=== PATIENT | male | born 1980 | race Caucasian/White ===

== ENCOUNTER 2022-09-10 01:47 | Outpatient (CLI) | payer OTHER, SELFPAY | END 2022-09-10 01:48 | disposition home or self-care (01) | LOC: AMB 09-11 15:40 | PROVIDERS: PCP Family Medicine; Visit Provider Family Medicine | DX: R41.82 Altered mental status, unspecified (principal) | CPT/HCPCS: A0425; A0429 ==

== ENCOUNTER 2022-09-10 02:40 | Emergency (ER) | payer OTHER, SELFPAY ==
[2022-09-10] VITALS (24 sets, daily range): BP systolic 118–138; BP diastolic 69–90; PULSE 71–109; RESP 14–16; TEMP 36.9; O2SAT 95–98
--- NOTE | 2022-09-10 02:57 | CRLHL7_ITS ---
For Patients: As a result of the Century Cures Act, medical imaging exams and procedure reports are released immediately into your electronic medical record. You may view this report before your referring provider. If you have questions, please contact your health care provider. INDICATION: Transient alteration of awareness TECHNIQUE: CT Head without i.v. contrast. Coronal and sagittal reformats were obtained. COMPARISON: None FINDINGS: CSF space: The ventricles are normal for age. Brain: No evidence of mass, acute infarction or hemorrhage is seen. No mass-effect or midline shift is seen. The brain parenchyma is otherwise normal in appearance with preservation of the nguyen-white matter junction. Calvarium: The visualized paranasal sinuses are well aerated. The mastoid air cells are clear. The visualized orbits are grossly unremarkable. The calvarium is unremarkable in appearance with no fractures identified. IMPRESSION: 1. No evidence of acute infarction, intracranial hemorrhage, or mass-effect seen. Please note that all CT scans at this facility use dose modulation, iterative reconstruction, and/or weight-based dosing when appropriate to reduce radiation dose to as low as reasonably achievable. Dictated by: Cassius Guevara MD @ 09/10/2022 03:37:20 (Electronically Signed)
--- NOTE | 2022-09-10 02:59 | ED_ITS ---
HPI - General Adult General Chief complaint: Altered Mental Status Stated complaint: altered mental status Time Seen by Provider: 09/10/22 02:57 Source: family and EMS Mode of arrival: EMS History of Present Illness HPI narrative: Patient presents by EMS with altered mental status. called EMS because he was acting strangely when she awoke in the middle of the night. His moving all extremities but seemed ?off?. He took a gas station gummy of unknown contents this evening. No one can tell me if he does this regularly or if there were any other impairing substances. He is awake, arousable, but cannot answer appropriate questions at the time my investigation. Information is obtained from EMS, will update with call to . He claims he has no long-term medications or allergies. He denies any other intoxication but does admit to taking the gummy. ROS notable for the altered mental status but was apparently behaving normally with no other medical complaint times 12 systems prior to taking the gummy and going to bed. Last known well was apparently around 8 p.m. Update: Our nursing team was able to speak with his in reported that he was behaving normally when he went to bed at 7:45 p.m.. He probably took the gummy after supper at around 7:30 p.m.. He woke up screaming at to a.m. stating that ?everything was all right, everything was all right?. She could not get him to calm down and therefore called EMS. She does not believe that he took any other impairing substances. He has no history of similar behavior. He was moving all extremities, did not seem to be in any respiratory distress or any other medical emergency. This report was taken by the nursing team. Related Data Allergies Allergy/AdvReac Type Severity Reaction Status Date / Time Unable to Assess Allergy Verified 09/10/22 02:46 PFSH PFSH Social History Non-prescribed substance use: marijuana (any form) Exam Const: Vital Signs, click to edit/add: Vital Signs - 24 hr 09/10/22 02:43 09/10/22 02:57 09/10/22 03:00 Temperature 98.5 F Pulse Rate 103 H 106 H Pulse Rate [Right Pulse Oximeter] 102 H Respiratory Rate 14 Blood Pressure Blood Pressure [Le ft Upper Arm] 138/90 H Pulse Oximetry 98 97 95 Oxygen Delivery Me thod Room Air 09/10/22 03:01 09/10/22 03:02 09/10/22 03:24 Temperature Pulse Rate 103 H 105 H 104 H Pulse Rate [Right Pulse Oximeter] Respiratory Rate Blood Pressure 133/85 Blood Pressure [Le ft Upper Arm] Pulse Oximetry 96 96 97 Oxygen Delivery Me thod 09/10/22 03:30 09/10/22 03:32 09/10/22 03:46 Temperature Pulse Rate 109 H 105 H Pulse Rate [Right Pulse Oximeter] Respiratory Rate Blood Pressure 121/75 125/74 Blood Pressure [Le ft Upper Arm] Pulse Oximetry 98 97 Oxygen Delivery Me thod 09/10/22 04:02 09/10/22 04:17 09/10/22 04:32 Temperature Pulse Rate Pulse Rate [Right Pulse Oximeter] Respiratory Rate Blood Pressure 126/75 129/75 122/75 Blood Pressure [Le ft Upper Arm] Pulse Oximetry Oxygen Delivery Me thod 09/10/22 04:47 09/10/22 05:01 09/10/22 05:17 Temperature Pulse Rate Pulse Rate [Right Pulse Oximeter] Respiratory Rate Blood Pressure 133/82 124/76 118/71 Blood Pressure [Le ft Upper Arm] Pulse Oximetry Oxygen Delivery Me thod 09/10/22 05:32 09/10/22 05:45 09/10/22 05:47 Temperature Pulse Rate 90 Pulse Rate [Right Pulse Oximeter] Respiratory Rate Blood Pressure 120/69 131/77 Blood Pressure [Le ft Upper Arm] Pulse Oximetry 97 Oxygen Delivery Me thod 09/10/22 06:00 09/10/22 06:15 09/10/22 06:30 Temperature Pulse Rate 87 85 72 Pulse Rate [Right Pulse Oximeter] Respiratory Rate Blood Pressure Blood Pressure [Le ft Upper Arm] Pulse Oximetry 96 95 96 Oxygen Delivery Me thod Documenting provider has reviewed patient's vital signs: yes General appearance: well kempt Other: Excitable, delirious. Not aggressive. Can answer some very basic questions but looks around in on a, wide-eyed. Moves all 4 extremities easily, can follow some simple commands. HENMT: Common normals: normocephalic and head/scalp atraumatic Head and scalp: normocephalic and atraumatic Mouth: oral and palatal mucosa normal Throat: posterior oropharynx normal Eye: Common normals: EOMs intact bilaterally General eye: normal appearance of both eyes Other: Both pupils very dilated, do not react. Normal extraocular movements with no nystagmus Neck & C-Spine: Common normals: full ROM and no lymphadenopathy Chest: Common normals: inspection of chest normal and palpation of chest normal Resp: Common normals: normal respiratory effort, no retractions, no use of accessory muscles and clear to auscultation bilaterally Auscultation: clear to auscultation bilaterally Cardio: Common normals: regular rate, regular rhythm, S1 normal heart sound, S2 normal heart sound and no murmurs Rate: regular rate Rhythm: regular rhythm Heart sounds: S1 normal and S2 normal GI: Common normals: Normal to inspection, nondistended, normoactive bowel sounds present, soft to palpation, non-tender, no hepatosplenomegaly and no masses Palpation: soft and no hepatosplenomegaly Back & Pelvis: Common normals: thoracic and lumbar spine normal to inspection and no thoracic nor lumbar tenderness Extremity: Common normals: normal to inspection, full ROM, normal capillary refill and no pedal edema Neuro: Sensorium/orientation: orientation impaired Motor exam: no movement abnormalities noted Other: Slowed mentation, delirious. Movements are symmetric, no tremor. Psych: Appearance: well kempt Activity/motor behavior: appropriate eye contact Insight: limited Judgement: limited Skin: Common normals: no rashes or lesions noted Narrative: No signs of injury or trauma General skin exam: no rashes or lesions noted Course Course Hospital Course: my instinct says that this person is likely only intoxicated, likely a hallucinogen mixed with a stimulant. Unfortunately, cannot exclude stroke, on reported trauma, medical illness or other etiology. Recommend head CT, basic labs. If these are negative, will allow him to have a period of observation to see if his symptoms improve prior to proceeding with more advanced imaging. I will try to contact his spouse when I get a free moment but mL own in a busy emergency department right now. Reevaluation(s) Time of Reevaluation #1: 04:10 Reevaluation #1: Reviewed x-ray and imaging findings. Patient is resting, sleeping. Vital signs still so some mild tachycardia but has otherwise stabilized. I think a period of observation is in order and if he does mentally clear, no need for further advanced imaging can likely be discharged. Will re-evaluate in a couple of hours. CT and blood work normal. Time of Reevaluation #2: 07:09 Reevaluation #2: Spoke with patient's . He is groggy but will arouse to voice and speak in full sentences. Nursing team reports that they took him to the bathroom where he was able to get up, transferred to the bathroom, notify them when he was complete, get himself back into bed with no difficulty. Steady on his feet and moving all extremities. For me, his speech is not slurred, his pulse has improved, his pupils are no longer dilated. He does reports that he feels very tired. At this time, I do not see any further sign of neurological impairment. I recommended that he go home and rest. His may take him home. If he has persistent neurological changes after this afternoon, I would recommend further evaluation, MRI. Would strongly discouraged use of these hallucinogenic products for him in the future. He and his verbalized understanding and agreement. Vital Signs Vital signs: Initial Vital Signs Temperature 98.5 F 09/10/22 02:43 Temperature Source Temporal Artery Scan 09/10/22 02:43 Pulse Rate 102 H 09/10/22 02:43 Pulse Rhythm Regular 09/10/22 02:43 Respiratory Rate 14 09/10/22 02:43 Blood Pressure 138/90 H 09/10/22 02:43 Blood Pressure Mean 106 H 09/10/22 02:43 Blood Pressure Position Semi-Fowlers 09/10/22 02:43 Pulse Oximetry 98 09/10/22 02:43 Oxygen Delivery Method Room Air 09/10/22 02:43 Vital Signs Temperature 98.5 F 09/10/22 02:43 Pulse Rate 102 H 09/10/22 02:43 Respiratory Rate 14 09/10/22 02:43 Blood Pressure 138/90 H 09/10/22 02:43 Pulse Oximetry 98 09/10/22 02:43 Oxygen Delivery Method Room Air 09/10/22 02:43 Temperature 98.5 F 09/10/22 02:43 Pulse Rate 72 09/10/22 06:30 Respiratory Rate 14 09/10/22 02:43 Blood Pressure 131/77 09/10/22 05:47 Pulse Oximetry 96 09/10/22 06:30 Oxygen Delivery Method Room Air 07/27/23 02:43 Medical Decision Making Lab Data Lab results reviewed: Yes I reviewed the patient's lab results Lab results narrative: Reassuring. No acidosis, normal hemoglobin, no infection. Normal lactate. No alcohol intoxication. Labs: Lab Results 09/10/22 09/10/22 Range/Units 03:05 05:55 WBC 7.10 (4.50-11.00) K/uL RBC 4.77 (4.30-5.90) m/uL Hgb 14.3 (13.5-17.5) gm/dL Hct 42.5 (37.0-53.0) % MCV 89 (80-100) fL MCH 30 (26-34) pg MCHC 34 (32-36) gm/dL RDW Coeff of Jeri 11.8 (11.5-15.5) % Plt Count 239 (140-440) K/uL Neut % (Auto) 71.9 (42.0-72.0) % Lymph % (Auto) 18.6 L (20-44) % [place] % (Auto) 7.7 (0.0-11.0) % Eos % (Auto) 1.4 (0.0-7.0) % Baso % (Auto) 0.3 (0.0-3.0) % Neut # (Auto) 5.10 (1.7-7.0) K/uL Lymph # (Auto) 1.30 (0.90-2.90) K/uL [place] # (Auto) 0.50 (0.00-0.90) K/UL Eos # (Auto) 0.10 (0.00-0.50) K/uL Baso # (Auto) 0.02 (0.00-0.30) K/uL Abs Immat Gran (auto) 0.01 (0.00-0.30) K/uL Imm/Tot Granulo (auto) 0.1 % VBG pH 7.421 (7.32-7.43) VBG pCO2 43 (40-50) mmHG VBG pO2 64.0 H (25-47) mmHG VBG HCO3 28 (21-28) mmol/L Sodium 138 (135-149) mmol/L Potassium 3.7 (3.6-5.1) mmol/L Chloride 104 (96-114) mmol/L Carbon Dioxide 27 (20-32) mmol/L BUN 11 (5-24) mg/dL Creatinine 0.8 (0.5-1.5) mg/dL Estimated GFR 115 ml/min Glucose 113 (60-115) mg/dL Lactate 1.2 (0.5-1.9) mmol/L Calcium 8.6 (8.4-10.6) mg/dL Urine Color Yellow (Yellow) Urine Appearance Clear (Clear) Urine pH 7.0 (5.0-8.5) Ur Specific [place] 1.020 (1.000-1.030) Urine Protein Negative (Negative) Urine Glucose (UA) Negative (Negative) Urine Ketones Negative (Negative) Urine Blood Negative (Negative) Urine Nitrite Negative (Negative) Urine Bilirubin Negative (Negative) Urine Urobilinogen 0.2 (0.2-1.0) Ur Leukocyte Esterase Negative (Negative) Ethyl Alcohol < 0.01 L (0.01-0.03) % Imaging Data CT scan - head: Attestation: I have reviewed the pertinent imaging results. My impression: Normal head CT Radiologist's impression: IMPRESSION: 1. No evidence of acute infarction, intracranial hemorrhage, or mass-effect seen. Discharge Plan Discharge Clinical Impression: Delirium, drug-induced Patient Disposition: Home w/ Parent or Adult Condition: Improved Instructions: Acute Delirium (ED) Additional Instructions: As discussed, it seems as though your symptoms were caused by a combination of stimulants and hallucinogens, likely from your ingested gummy. Even though these are [id number], they are really not safe. Unfortunately, they can also have very unpredictable results even from the same pathology assistant. I would not recommend that you continue to use these substances. For sleep, I do recommend melatonin, Tylenol p.m. or other substances that can be prescribed by your primary care doctor if needed. You are likely to be very fatigued today, but you may feel more anxious for the next 24 hours but this should improve gradually. You may resume all typical work duties after 5:00 p.m. today. If you have persistent neurological changes, I would recommend coming back to the emergency department and or making a follow-up with her primary care doctor to discuss further. Your blood work and CT scan of your head did not show any evidence of stroke, medical illness or other etiology for your symptoms today. Activity Level: No Restrictions Discharge Diet: Regular Follow Up/Referrals: Carlos Eduardo Frazier MD [Primary Care Provider] - Stand Alone Forms: [facility] Info Instructions
[2022-09-10 03:09] LABS: HCO3 VBG 28 mmol/L (21-28); Lactate* 1.2 mmol/L (0.5-1.9); PCO2 VBG 43 mmHG (40-50); pH VBG 7.421 (7.32-7.43)
[2022-09-10 03:11] LABS: Basophils Absolute Auto 0.02 K/uL (0.00-0.30); Basophils Percent Auto 0.3 % (0.0-3.0); Eosinophils Percent Auto 1.4 % (0.0-7.0); Hematocrit 42.5 % (37.0-53.0); Hemoglobin* 14.3 gm/dL (13.5-17.5); Immature Granulocytes Abs Auto 0.01 K/uL (0.00-0.30); Immature Granulocytes Pct Auto 0.1 %; Lymphocytes Percent Auto 18.6 % (20-44); Mean Corpuscular HGB Conc 34 gm/dL (32-36); Mean Corpuscular Hemoglobin 30 pg (26-34); Mean Corpuscular Volume 89 fL (80-100); Monocytes Percent Auto 7.7 % (0.0-11.0); Neutrophils Percent Auto 71.9 % (42.0-72.0); Platelet Count* 239 K/uL (140-440); RDW Coefficient of Variation % 11.8 % (11.5-15.5); Red Blood Count 4.77 m/uL (4.30-5.90); Slide Review Reflex No
[2022-09-10 03:24] LABS: Chloride* 104 mmol/L (96-114); Sodium* 138 mmol/L (135-149)
[2022-09-10 03:25] LABS: Potassium* 3.7 mmol/L (3.6-5.1)
[2022-09-10 03:27] LABS: Blood Urea Nitrogen* 11 mg/dL (5-24); Carbon Dioxide* 27 mmol/L (20-32); Creatinine* 0.8 mg/dL (0.5-1.5); Estimated Glomerular Filt Rate 115 ml/min
[2022-09-10 03:28] LABS: Calcium* 8.6 mg/dL (8.4-10.6); Ethanol* < 0.01 % (0.01-0.03); Glucose* 113 mg/dL (60-115)
--- NOTE | 2022-09-10 03:59 | ED.NURSE ---
Called , gave update about pt. stated pt was normal before bed, 1944. Pt woke up screaming, its ok, its ok Informed to come anytime to visit. Will call when pt is ready to be discharged if unable to come to ED. is looking after their two children at home.
--- NOTE | 2022-09-10 05:58 | ED.NURSE ---
Urine obtained, walked to lab. Pt able to ambulate. Wanted to lay down again, stated felt off.
[2022-09-10 06:09] LABS: Appearance Urine Clear (Clear); Bilirubin Urine Negative (Negative); Blood Urine Negative (Negative); Color Urine Yellow (Yellow); Glucose Urine Negative (Negative); Ketones Urine Negative (Negative); Leukocyte Esterase Urine Negative (Negative); Nitrite Urine Negative (Negative); Protein Urine Negative (Negative); Urobilinogen Urine 0.2 (0.2-1.0)
== END 2022-09-10 07:22 | disposition home or self-care (01) ==
PROVIDERS: Emergency Provider Family Medicine; PCP Family Medicine
DX: F19.921 Other psychoactive substance use, unspecified with intoxication with delirium (principal); R41.82 Altered mental status, unspecified
CPT/HCPCS: 36415; 70450; 80048; 81003; 82077; 82803; 83605; 85025; 99284